=== PATIENT | female | born 1995 | race American Indian/Alaskan Native ===

== ENCOUNTER 2020-11-23 17:20 | Emergency (ER) | payer SELFPAY ==
[2020-11-23] MEDS ORDERED: ACETAMINOPHEN 500 MG TAB PO ONE (19:46)
--- NOTE | 2020-11-23 19:51 | Emergency Department Report ---
ED Abdominal Pain HPI - General Chief Complaint: Abdominal Pain Stated Complaint: AB PAIN/BACK PAIN Source: patient Mode of arrival: Ambulatory Limitations: No Limitations - History of Present Illness Initial Comments: Patient is a A1 25-year-old -[place] female with no past medical history who presents to the ED with complaint of acute onset persistent diffuse body aches and pains, chills, nausea, low back pain that radiates to the suprapubic area and to the bilateral flanks for the last 1 week, worse in the last few days. Patient states that the pain has been persistent, and that the chills and nausea have also been getting worse and complicated by persistent headache. Patient denies dizziness, syncope, fever, vomiting, diarrhea, dysuria, vaginal bleeding, vaginal discharge, cough, chest pain or shortness of breath, nasal and sinus congestion, sore throat or heavy lifting and traumatic injury. MD Complaint: abdominal pain, flank pain, other (Low back pain with nausea and chills) -: Sudden, week(s) (1) Location: suprapubic, bilateral flank Radiation: suprapubic, bilateral flank, back (Low back) Migration to: no migration Severity scale (0 -10): 7 Quality: cramping, aching, sharp Consistency: constant Improves With: nothing Worsens With: nothing Associated Symptoms: denies other symptoms, nausea, chills, anorexia, other (Urinary frequency and urgency). denies: vomiting, diarrhea, fever, constipation, dysuria, hematemesis, hematochezia, melena, hematuria, syncope - Related Data LMP Date: 11/01/20 Previous Rx's Medication Instructions Recorded Last Taken Type Fluconazole [Diflucan TAB] 200 mg PO QDAY #2 tablet 11/23/20 Unknown Rx Ibuprofen [Motrin] 600 mg PO Q8H PRN #30 tablet 11/23/20 Unknown Rx Ondansetron [Zofran Odt] 4 mg PO Q8HR PRN #15 tab.rapdis 11/23/20 Unknown Rx Sulfamethoxazole/Trimethoprim 1 each PO Q12H #20 tablet 11/23/20 Unknown Rx [Bactrim DS TAB] Allergies Allergy/AdvReac Type Severity Reaction Status Date / Time No Known Allergies Allergy Verified 11/23/20 19:30 ED Review of Systems ROS: Stated complaint: AB PAIN/BACK PAIN Other details as noted in HPI Constitutional: chills, malaise. denies: fever, weakness Eyes: denies: eye pain, eye discharge, vision change ENT: denies: ear pain, throat pain Respiratory: denies: cough, shortness of breath, wheezing Cardiovascular: denies: chest pain, palpitations Endocrine: no symptoms reported Gastrointestinal: nausea. denies: abdominal pain, vomiting, diarrhea, constipation, hematemesis, hematochezia Genitourinary: urgency, frequency. denies: dysuria, discharge Musculoskeletal: back pain (Low back pain), arthralgia (Diffuse joint pains), myalgia (Diffuse body aches and pains). denies: joint swelling Skin: denies: rash, lesions Neurological: headache. denies: weakness, paresthesias Psychiatric: denies: anxiety, depression Hematological/Lymphatic: denies: easy bleeding, easy bruising ED Past Medical Hx - Past Medical History Previous Medical History?: No - Medications Home Medications: Home Medications Medication Instructions Recorded Confirmed Last Taken Type Fluconazole [Diflucan TAB] 200 mg PO QDAY #2 tablet 11/23/20 Unknown Rx Ibuprofen [Motrin] 600 mg PO Q8H PRN #30 tablet 11/23/20 Unknown Rx Ondansetron [Zofran Odt] 4 mg PO Q8HR PRN #15 tab.rapdis 11/23/20 Unknown Rx Sulfamethoxazole/Trimethoprim 1 each PO Q12H #20 tablet 11/23/20 Unknown Rx [Bactrim DS TAB] ED Physical Exam - General Limitations: No Limitations General appearance: alert, in no apparent distress - Head Head exam: Present: atraumatic, normocephalic, normal inspection - Eye Eye exam: Present: normal appearance, PERRL, EOMI Pupils: Present: normal accommodation - ENT ENT exam: Present: normal exam, normal orophraynx, mucous membranes moist, TM's normal bilaterally, normal external ear exam - Neck Neck exam: Present: normal inspection, full ROM - Respiratory Respiratory exam: Present: normal lung sounds bilaterally. Absent: respiratory distress, wheezes, rales, rhonchi, chest wall tenderness, accessory muscle use, decreased breath sounds, prolonged expiratory - Cardiovascular Cardiovascular Exam: Present: normal rhythm, tachycardia, normal heart sounds. Absent: systolic murmur, diastolic murmur, rubs, gallop - GI/Abdominal GI/Abdominal exam: Present: soft, normal bowel sounds. Absent: tenderness, guarding, rebound, hyperactive bowel sounds, hypoactive bowel sounds, organomegaly - Extremities Exam Extremities exam: Present: normal inspection, full ROM, normal capillary refill - Back Exam Back exam: Present: normal inspection, full ROM. Absent: tenderness, CVA tenderness (R), CVA tenderness (L), muscle spasm, paraspinal tenderness, vertebral tenderness - Neurological Exam Neurological exam: Present: alert, oriented X3, CN II-XII intact, normal gait, reflexes normal - Psychiatric Psychiatric exam: Present: normal affect, normal mood - Skin Skin exam: Present: warm, dry, intact, normal color. Absent: rash ED Course Vital Signs 11/23/20 11/23/20 11/23/20 19:33 19:35 21:53 Temperature 98.7 F Pulse Rate 108 H 108 H Respiratory Rate Blood Pressure 102/65 101/61 O2 Sat by Pulse 98 100 Oximetry 11/23/20 22:46 Temperature Pulse Rate 83 Respiratory 17 Rate Blood Pressure O2 Sat by Pulse 99 Oximetry ED Medical Decision Making - Lab Data Result diagrams: 11/23/20 20:07 11/23/20 20:07 - Medical Decision Making This is a A1 25-year-old -[place] female with no past medical history who presents to the ED with complaint of acute onset persistent diffuse body aches and pains, chills, nausea, low back pain that radiates to the suprapubic area and to the bilateral flanks for the last 1 week, worse in the last few days. Patient states that the pain has been persistent, and that the chills and nausea have also been getting worse and complicated by persistent headache. In the ED, patient is alert and oriented x3 and is not in any distress but anxious, tachycardic and afebrile in triage. Lab test results were reviewed and showed acute leukocytosis of 14,000 and urinalysis showed significant urinary tract infection with >182 WBCs and large leukocyte esterase as well as significant vaginal yeast. Patient received Rocephin 1 g intramuscular injection and Toradol 30 mg intramuscular injection in the ED. On reevaluation, patient's pain is well controlled medications. Patient was therefore discharged home on antibiotics and pain medications and advised to follow-up with her primary care physician in 5 to 7 days for reevaluation or return to the ED immediately if symptoms get worse. - Differential Diagnosis UTI; ; ovarian cyst; dysmenorrhea; kidney stone; STD Critical care attestation.: If time is entered above; I have spent that time in minutes in the direct care of this critically ill patient, excluding procedure time. ED Disposition Clinical Impression: Bilateral flank pain, Acute urinary tract infection, Candidal vaginitis Disposition: HOME / SELF CARE / HOMELESS Is pt being admited?: No Does the pt Need Aspirin: No Condition: Stable Instructions: Vaginal Yeast Infection, Adult, Urinary Tract Infection, Adult, [id number], Abdominal Pain, Adult, [id number], Flank Pain, Adult, Easy-to-Re ad, Abdominal Pain (ED) Additional Instructions: All lab test results were reviewed and are all nonactionable except for mild leukocytosis of 14,000, and significant urinary tract infection in urinalysis. Your test is negative. Therefore take medications with food, drink plenty of fluids and follow-up with your primary care physician in 7 to 10 days for reevaluation. Return to the ED immediately if symptoms get worse. Prescriptions: Sulfamethoxazole/Trimethoprim [Bactrim DS TAB] 1 each PO Q12H #20 tablet Fluconazole [Diflucan TAB] 200 mg PO QDAY #2 tablet Ibuprofen [Motrin] 600 mg PO Q8H PRN #30 tablet PRN Reason: Pain Ondansetron [Zofran Odt] 4 mg PO Q8HR PRN #15 tab.rapdis PRN Reason: Nausea Referrals: [facility] [Provider Group] - 7-10 days Time of Disposition: 21:12 Print Language: PASHTO
[2020-11-23] MEDS ORDERED: ONDANSETRON 4 MG ODT TAB PO ONE (19:52)
[2020-11-23 20:28] LABS: Basophils % (Auto) 0.2 % (0.0-1.8); Hematocrit 40.1 % (30.3-42.9); Hemoglobin 13.6 gm/dl (10.1-14.3); Lymphocytes # (Auto) 0.4 K/mm3 (1.2-5.4); Lymphocytes % (Auto) 2.7 % (13.4-35.0); Mean Corpuscular HGB Conc 34 % (30-34); Mean Corpuscular Volume 89 fl (79-97); Monocytes # (Auto) 1.2 K/mm3 (0.0-0.8); Monocytes % (Auto) 8.6 % (0.0-7.3); Platelet Count 148 K/mm3 (140-440); Red Blood Count 4.49 M/mm3 (3.65-5.03); Red Cell Distribution Width 13.5 % (13.2-15.2)
[2020-11-23 20:43] LABS: Bacteria,Urine 1+ /HPF (Negative); Bilirubin,Urine NEG (Negative); Blood,Urine LG (Negative); Color,Urine Yellow (Yellow); Mucus,Urine FEW /HPF; Urobilinogen,Urine < 2.0 mg/dL (<2.0); WBC,Urine > 182.0 /HPF (0.0-6.0)
[2020-11-23 20:49] LABS: Alanine Aminotransferase 10 units/L (7-56); Albumin 4.4 g/dL (3.9-5); Blood Urea Nitrogen 11 mg/dL (7-17); Calcium 8.9 mg/dL (8.4-10.2); Hemolysis Index 4
[2020-11-23 21:07] LABS: BUN/Creatinine Ratio 16
[2020-11-23] MEDS ORDERED: LIDOCAINE-MPF (1%) 10 MG/1 ML VIAL 5 ML INFILTRATI ONE (21:10)
[2020-11-23] MEDS ORDERED: KETOROLAC 30 MG/1 ML INJ IM ONE (21:11)
[2020-11-23 21:54] VITALS: BP 101/61
== END 2020-11-23 22:46 | disposition home or self-care (01) ==
LOC: ED 17:20
DX: N39.0 Urinary tract infection, site not specified (principal); B37.3 Candidiasis of vulva and vagina; R10.9 Unspecified abdominal pain; Z79.899 Other long term (current) drug therapy
CPT/HCPCS: 36415; 80053; 81001; 84703; 85025; 96372; 99283; J0696; J1885